=== PATIENT | male | born 1990 | race Caucasian/White ===

== ENCOUNTER 2020-01-17 19:22 | Emergency (ER) | payer BC, OTHER ==
[2020-01-17 19:33] VITALS: BP 154/90; PULSE 98
[2020-01-17] MEDS ORDERED: Sodium Chloride 0.9% 10 ML Syringe FLUSH PRN (19:53)
[2020-01-17] MEDS ORDERED: cefTRIAXone 1 GM in Sodium Chloride 0.9% 100 ML IV ONE (20:39)
--- NOTE | 2020-01-17 20:47 | EDM.PDOC ---
ED HPI GENERAL MEDICAL PROBLEM - General Chief Complaint: Lower Extremity Injury/Pain Stated Complaint: RIGHT KNEE PAIN GETTING WORSE Time Seen by Provider: 01/17/20 19:32 Source of Information: Reports: Patient History Limitations: Reports: No Limitations - History of Present Illness INITIAL COMMENTS - FREE TEXT/NARRATIVE: Patient is a 30-year-old male who comes in with complaints of redness, swelling , and erythema to the medial aspect of his right leg. He states that on Monday night he hit the medial aspect of his knee on a trailer hitch. He had minimal pain initially, however the next day he developed pain and redness over the area. He saw Dr. Castro in the clinic yesterday. These records were obtained. The area of erythema was marked with a marker and he injected the pes anserinus bursa with Depo-Medrol. Patient was advised to monitor the area for increased erythema. Patient presents today because the redness has worsened and he had a low-grade fever of 100.1 at home. He has been taking Naprosyn for pain as was prescribed by Dr. Castro. He denies any pain or swelling in the knee joint itself. Denies any nausea, vomiting, or diarrhea. Right Knee Pain Score (Numeric/FACES): 3 - Related Data Allergies Allergy/AdvReac Type Severity Reaction Status Date / Time No Known Allergies Allergy Verified 01/17/20 19:34 Home Meds: Home Meds Doxycycline [Vibramycin] 100 mg PO BID 10 Days #20 tab 01/17/20 [Rx] Naproxen 1 tab PO ASDIRECTED 01/17/20 [History] Past Medical History - Past Health History Medical/Surgical History: Denies Medical/Surgical History Social & Family History - Tobacco Use Smoking Status *Q: Current Every Day Smoker Years of Tobacco use: 13 Packs/Tins Daily: 0.2 - Caffeine Use Caffeine Use: Reports: None - Recreational Drug Use Recreational Drug Use: No Review of Systems - Review of Systems Review Of Systems: Comprehensive ROS is negative, except as noted in HPI. ED EXAM, GENERAL - Physical Exam Exam: See Below Exam Limited By: No Limitations General Appearance: Alert, WD/WN, No Apparent Distress Respiratory/Chest: No Respiratory Distress, Lungs Clear, Normal Breath Sounds, No Accessory Muscle Use, Chest Non-Tender Cardiovascular: Normal Peripheral Pulses, Regular Rate, Rhythm, No Edema, No Gallop, No JVD, No Murmur, No Rub Extremities: Other (Redness, warmth, and erythema extending from the level of the proximal medial knee to mid calf. There is no redness, swelling, or effusion of the knee joint itself.) Neurological: Alert, Oriented, CN II-XII Intact, Normal Cognition, Normal Gait, Normal Reflexes, No Motor/Sensory Deficits Psychiatric: Normal Affect, Normal Mood Skin Exam: Warm, Dry, Intact, Normal Color, No Rash Course - Vital Signs Last Recorded V/S: Last Vital Signs Temp 98.4 F 01/17/20 19:31 Pulse 98 01/17/20 19:31 Resp 20 01/17/20 19:31 BP 154/90 H 01/17/20 19:31 Pulse Ox 97 01/17/20 19:31 - Orders/Labs/Meds Labs: Laboratory Tests 01/17/20 01/17/20 01/17/20 Range/Units 20:04 20:04 20:04 WBC 26.83 H (4.23-9.07) K/mm3 RBC 4.76 (4.63-6.08) M/mm3 Hgb 14.8 (13.7-17.5) gm/dl Hct 43.0 (40.1-51.0) % MCV 90.3 (79.0-92.2) fl MCH 31.1 (25.7-32.2) pg MCHC 34.4 (32.2-35.5) g/dl RDW Std Deviation 41.1 (35.1-43.9) fL Plt Count 343 H (163-337) K/mm3 MPV 8.6 L (9.4-12.3) fl Neut % (Auto) 83.7 H (34.0-67.9) % Lymph % (Auto) 8.7 L (21.8-53.1) % [place] % (Auto) 6.6 (5.3-12.2) % Eos % (Auto) 0.4 L (0.8-7.0) Baso % (Auto) 0.2 (0.1-1.2) % Neut # (Auto) 22.45 H (1.78-5.38) K/mm3 Lymph # (Auto) 2.33 (1.32-3.57) K/mm3 [place] # (Auto) 1.77 H (0.30-0.82) K/mm3 Eos # (Auto) 0.12 (0.04-0.54) K/mm3 Baso # (Auto) 0.05 (0.01-0.08) K/mm3 Manual Slide Review Abnormal smear Sodium 138 (136-145) mEq/L Potassium 3.6 (3.5-5.1) mEq/L Chloride 101 (98-107) mEq/L Carbon Dioxide 25 (21-32) mEq/L Anion Gap 15.6 H (5-15) BUN 14 (7-18) mg/dL Creatinine 1.0 (0.7-1.3) mg/dL Est Cr Clr Drug Dosing 122.07 mL/min Estimated GFR (MDRD) > 60 (>60) mL/min BUN/Creatinine Ratio 14.0 (14-18) Glucose 108 H (74-106) mg/dL Lactic Acid 0.7 (0.4-2.0) mmol/L Calcium 9.1 (8.5-10.1) mg/dL Total Bilirubin 0.5 (0.2-1.0) mg/dL AST 18 (15-37) U/L ALT 30 (16-63) U/L Alkaline Phosphatase 85 (46-116) U/L Total Protein 8.2 (6.4-8.2) g/dl Albumin 3.8 (3.4-5.0) g/dl Globulin 4.4 gm/dL Albumin/Globulin Ratio 0.9 L (1-2) Meds: Medications Discontinued Medications Generic Name Dose Route Start Last Admin Trade Name Freq PRN Reason Stop Dose Admin Ceftriaxone Sodium 1 gm/ 100 mls @ 200 mls/hr 01/17/20 20:39 01/17/20 20:49 Sodium Chloride IV 01/17/20 21:08 200 mls/hr ONETIME ONE Administration Sodium Chloride 10 ml 01/17/20 19:53 01/17/20 20:29 Saline Flush FLUSH 10 ml ASDIRECTED PRN Administration Keep Vein Open - Re-Assessments/Exams Free Text/Narrative Re-Assessment/Exam: 01/17/20 20:47 On exam, patient is presentation appears to be consistent with that of a cellulitis. CBC does show white count elevated at 26.83 however, his lactic acid is found to be normal. This elevated white count is likely associated with the steroid injection he received yesterday. Blood cultures have been drawn. Patient is not febrile, tachycardic, or hypotensive. I will give him a dose of IV Rocephin now and then discharge him home with a prescription for doxycycline and orders to follow-up with Dr. Castro early next week. I did also kenney the current area of erythema. Patient has been educated that if this would worsen instead of improve, he should return to the emergency department. Departure - Departure Time of Disposition: 21:42 Disposition: Home, Self-Care 01 Condition: Fair Clinical Impression: Cellulitis of leg, right - Discharge Information *PRESCRIPTION DRUG MONITORING PROGRAM REVIEWED*: No *COPY OF PRESCRIPTION DRUG MONITORING REPORT IN PATIENT ERLIN: No Prescriptions: Doxycycline [Vibramycin] 100 mg PO BID 10 Days #20 tab Instructions: Cellulitis, Adult Referrals: Edgar Aguilar MD [Primary Care Provider] - Forms: ED Department Discharge Additional Instructions: You were seen in the emergency department today for increased redness and swelling to your right leg. Your exam is consistent with a diagnosis of cellulitis which is an infection within the skin. You received a dose of IV antibiotics in the emergency department. A prescription for doxycycline has been sent to clinic pharmacy. Pick this medication up tomorrow and take as prescribed. You may continue to use the Naprosyn previously as prescribed as needed for pain. You should begin to see improvement in the redness and erythema over the next 24 hours. If this should worsen, we would want you to return to the emergency department. Otherwise I do recommend that you follow- up with Dr. Castro early next week to for re-check. Sepsis Event Note - Evaluation Sepsis Screening Result: No Definite Risk - Focused Exam Date Exam was Performed: 01/18/20 Time Exam was Performed: 21:42
== END 2020-01-17 21:52 | disposition home or self-care (01) ==
LOC: JD.ED 19:22
DX: L03.115 Cellulitis of right lower limb (principal); F17.210 Nicotine dependence, cigarettes, uncomplicated
CPT/HCPCS: 36415; 80053; 83605; 85025; 87040; 96365; 99283; J0696; J7050

== ENCOUNTER 2024-08-15 13:25 | Emergency (ER) | payer OTHER ==
[2024-08-15] MEDS ORDERED: Sodium Chloride 0.9% 10 ML Syringe FLUSH PRN (13:59)
[2024-08-15 14:16] LABS: BASOPHILS PERCENT AUTO 0.3 % (0.0-1.0); EOSINOPHILS ABSOLUTE AUTO 0.2 K/mm3 (0.0-0.4); EOSINOPHILS PERCENT AUTO 1.5 % (0.0-6.0); HEMATOCRIT 47.1 % (42.0-52.0); HEMOGLOBIN 16.3 gm/dl (14.0-18.0); IMMATURE GRAN ABSOLUTE AUTO 0.04 K/mm3 (0.00-0.05); IMMATURE GRAN PERCENT AUTO 0.4 % (0.0-0.4); LYMPHOCYTES ABSOLUTE AUTO 3.4 K/mm3 (1.0-4.8); LYMPHOCYTES PERCENT AUTO 30.6 % (24.0-44.0); MEAN CORPUSCULAR HEMOGLOBIN 31.4 pg (28.0-32.0); MEAN CORPUSCULAR HGB CONC 34.6 g/dl (32.0-36.0); MEAN CORPUSCULAR VOLUME 90.8 fl (83.0-99.0); MEAN PLATELET VOLUME 8.6 fl (9.4-12.4); MONOCYTES ABSOLUTE AUTO 0.8 K/mm3 (0.0-0.8); NEUTROPHILS ABSOLUTE AUTO 6.7 K/mm3 (1.8-7.7); NEUTROPHILS PERCENT AUTO 60.2 % (41.0-71.0); PLATELET COUNT,PLT 327 K/mm3 (150-400); RED BLOOD CELL COUNT 5.19 M/mm3 (4.52-5.90); WHITE BLOOD CELL COUNT,WBC 11.04 K/mm3 (3.9-11.3)
[2024-08-15] MEDS: Sodium Chloride 0.9% 10 ML Syringe FLUSH PRN (14:22)
[2024-08-15] MEDS: Iopamidol 755 Mg/ML 100 ML Bottle IVPUSH ONE (14:23)
[2024-08-15 14:39] LABS: A/G RATIO 1.2 (1-2); ALBUMIN 4.1 g/dl (3.4-5.0); ANION GAP 11.8 (5-15); BILIRUBIN TOTAL 0.3 mg/dL (0.2-1.0); EST CRCL DRUG DOSING (CG) 117.63 mL/min; POTASSIUM,K 3.8 mEq/L (3.5-5.1); PROTEIN TOTAL,TP 7.5 g/dl (6.4-8.2)
[2024-08-15 16:06] VITALS: BP 132/79; PULSE 74
== END 2024-08-15 16:02 | disposition home or self-care (01) ==
LOC: JD.ED 13:25
DX: R59.1 Generalized enlarged lymph nodes (principal); F17.210 Nicotine dependence, cigarettes, uncomplicated
CPT/HCPCS: 36415; 74177; 80053; 85025; 99284; J3490; Q9967